=== PATIENT | female | born 1980 | race Two or more races ===

== ENCOUNTER 2017-11-06 20:03 | Emergency (ER) | payer SELFPAY ==
[~2017-11-06] VITALS: Ht 172.7 cm; Wt 72.7 kg
[2017-11-06] MEDS ORDERED: IBUPROFEN 800MG TABLET PO ONE (23:15)
[2017-11-07 00:06] VITALS: BP 110/75
== END 2017-11-07 00:07 | disposition home or self-care (01) ==
LOC: ER 20:03
DX: R51 Headache (principal); R11.2 Nausea with vomiting, unspecified; G62.9 Polyneuropathy, unspecified; R55 Syncope and collapse
CPT/HCPCS: 99283